=== PATIENT | female | born 1965 | race Caucasian/White ===

== ENCOUNTER 2019-08-14 09:59 | Outpatient (CLI) | payer MEDICARE, SELFPAY ==
[2019-08-14 10:46] LABS: Basophils # 0.1 10^3/uL (0.0-0.1); Basophils % 0.7 %; Eosinophils # 0.3 10^3/uL (0.0-0.8); Eosinophils % 4.2 %; Hematocrit 40.8 % (37.0-47.0); Hemoglobin 12.2 g/dL (11.5-15.3); Lymphocytes # 1.9 10^3/uL (0.8-4.8); Lymphocytes % 24.3 %; Mean Corpuscular HGB Conc 29.9 g/dL (30.0-36.0); Mean Corpuscular Hemoglobin 26.1 pg (28.0-34.0); Mean Corpuscular Volume 87.2 fL (81-99); Mean Platelet Volume 9.6 fL (7.4-10.4); Monocytes # 0.4 10^3/uL (0.2-0.9); Monocytes % 5.3 %; Neutrophils % 65.2 %; Nucleated Red Blood Cells % 0 %; Platelet Count 387 10^3/cmm (130-400); Red Blood Count 4.68 10^6/uL (4.1-5.3); Red Cell Distribution Width 15.8 % (12.1-15.1); White Blood Count 7.7 10^3/uL (4.0-10.0)
[2019-08-14 11:05] LABS: Alanine Aminotransferase 10 U/L (0-33); Alkaline Phosphatase 80 IU/L (35-105); Aspartate Amino Transferase 15 U/L (0-32); C Reactive Protein 18.4 mg/L (0.0-4.9); Globulin 4.3 g/dL (1.3-4.6); Glomerular Filtration Rate 74.7 mL/min (90-130); Total Bilirubin 0.2 mg/dL (0.15-1.2); Total Protein 8.3 g/dL (6.6-8.7)
[2019-08-14 12:00] LABS: Hepatitis C Virus Antibody Non-Reactive (Nonreactive)
[2019-08-14 12:10] LABS: Erythrocyte Sedimentation Rate 46 mm/hr (0-15)
[2019-08-14 13:27] LABS: Hepatitis B Surface Antigen. Non-Reactive (Nonreactive)
[2019-08-16 14:41] LABS: Quantiferon Nil 0.02 IU/mL; Quantiferon Plus TB2 0.01 IU/mL; Quantiferon TB Gold NEGATIVE (NEGATIVE)
== END 2019-08-14 10:00 | disposition home or self-care (01) ==
LOC: LAB 10:06
PROVIDERS: Family Provider Family Medicine; PCP Family Medicine; Visit Provider Internal Medicine Rheumatology
DX: M35.00 Sjogren syndrome, unspecified (principal); D89.89 Other specified disorders involving the immune mechanism, not elsewhere classified
CPT/HCPCS: 36415; 80076; 82565; 85025; 85651; 86140; 86480; 86704; 86803; 87340

== ENCOUNTER 2019-11-12 12:26 | Outpatient (CLI) | payer MEDICARE, SELFPAY ==
--- NOTE | 2019-11-12 12:32 | MR_ITS ---
WS: [id number] MRI LUMBAR SPINE NONCONTRAST HISTORY: RADICULOPATHY LUMBAR REGION;BACK Pain; polyneuropathy UNSPEC COMPARISON: 07/02/2014 TECHNIQUE: Sagittal and axial multisequence imaging is submitted. Same numbering pattern will be utilized as on the prior MRI. There are 6 lumbar type vertebral bodies . The sixth lumbar vertebral body may be a lumbarized sacral segment. This was numbered as 6 lumbar v ertebral bodies on the prior study and this same number pattern will be utilized. Normal lumbar alignment. Advanced degenerative disc disease from L4-5 through L5-L6 and L6-S1. No fractures or marrow edema. Conus terminates normally at L1-2 disc level. L1-L2: Normal. L2-L3: Normal. L3-L4: Mild annular disc bulging and ligamentum flavum hypertrophy. No stenosis. L4-L5: Diffuse asymmetric disc bulging and osteophytosis. Laminectomy defect on the LEFT. There is mi ld LEFT subarticular recess stenosis. No change since the prior study. L5-L6: Diffuse mild annular disc bulging with ligamentum flavum hypertrophy and facet arthritis. Left -sided laminectomy defect. Mild bilateral foraminal narrowing and mild LEFT subarticular recess narro wing. L6-S1: Broad-based disc bulging with moderate facet arthritis. Very mild narrowing of the LEFT forame n and subarticular recess. Paravertebral soft tissues are negative. MR/MR lumbar spine wo con* [id number] IMPRESSION: 1. No significant central or foraminal stenosis. 2. 6 lumbar type vertebral bodies are identified as on the prior study from . Similar numbering pattern will be utilized today. 3. LEFT laminectomy defects at L4-5 and L5-L6. 4. Mild annular disc bulging and osteophytic ridging resulting in mild LEFT cabezas barticular recess and facet narrowing at L4-5, L5 -L6 and L6-S1.
== END 2019-11-12 12:27 | disposition home or self-care (01) ==
LOC: RADSHAW 12:28
PROVIDERS: PCP Nurse Practitioner; Visit Provider Nurse Practitioner
DX: M54.16 Radiculopathy, lumbar region (principal); G62.9 Polyneuropathy, unspecified
CPT/HCPCS: 72148

== ENCOUNTER 2019-11-21 14:27 | Outpatient (CLI) | payer MEDICARE, SELFPAY ==
--- NOTE | 2019-11-21 14:34 | XRR_ITS ---
PROCEDURE INFORMATION: Exam: XR Cervical Spine, 2 or 3 Views Exam date and time: 11/21/2019 2:54 PM Age: 54 years old Clinical indication: Patient HX: Neck pain with numbness in hands, PT fell in October 2019 TECHNIQUE: Imaging protocol: XR of the cervical spine, 2 or 3 views. COMPARISON: No relevant prior studies available. FINDINGS: Vertebrae: Partial obscuration of C7. No acute bony injury or malalignment in the visualized cervical spine. Degenerative change. Soft tissues: Unremarkable. XR/XR cervical spine 3V* [id number] IMPRESSION: 1. Partial obscuration of C7. 2. Degenerative change.
== END 2019-11-21 14:28 | disposition home or self-care (01) ==
LOC: RAD 14:33
PROVIDERS: Family Provider Nurse Practitioner; PCP Nurse Practitioner; Visit Provider Family Medicine
DX: M54.2 Cervicalgia (principal)
CPT/HCPCS: 72040

== ENCOUNTER → 2019-11-27 13:15 | Outpatient (BNVA) | payer MEDICARE, SELFPAY | PROVIDERS: Family Provider Nurse Practitioner; PCP Nurse Practitioner; Visit Provider Internal Medicine | DX: M06.9 Rheumatoid arthritis, unspecified (principal); Z79.899 Other long term (current) drug therapy; M35.3 Polymyalgia rheumatica; M35.00 Sjogren syndrome, unspecified; R00.0 Tachycardia, unspecified | CPT/HCPCS: 36415; 99214 ==

== ENCOUNTER 2019-11-27 15:04 | Outpatient (CLI) | payer MEDICARE, SELFPAY ==
--- NOTE | 2019-11-27 15:34 | ECG_ITS ---
[facility] Test Date: 2019-11-27 Pat Name: Asiya Ledezma Department: Room: Gender: Female [place]: : 1965 Requested By: Ness Mcneil Order Number: [id number] Francisco MD: Lizbeth Reese M.D. Measurements Intervals [place] Rate: 102 P: 53 WA: 162 QRS: -26 QRSD: 102 T: 17 QT: 310 QTc: 406 Interpretive Statements SINUS TACHYCARDIA MODERATE VOLTAGE CRITERIA FOR LVH, CONSIDER NORMAL VARIANT [MEETS CRITERIA IN ONE OF: R(aVL), S(V1), R(V5), R(V5/V6)+S(V1)] POSSIBLE ANTERIOR MYOCARDIAL INFARCTION , PROBABLY OLD [30 ms Q WAVE IN V3/V4, OR R < 0.2 mV IN V4] ABNORMAL RHYTHM ECG No previous ECG available for comparison Electronically Signed On 11-27-2019 19:35:27 CDT by Lizbeth Reese M.D. [email or web address]
== END 2019-11-27 15:05 | disposition home or self-care (01) ==
LOC: RT 15:10
PROVIDERS: PCP Nurse Practitioner; Visit Provider Internal Medicine
DX: R00.0 Tachycardia, unspecified (principal); M35.3 Polymyalgia rheumatica; M06.9 Rheumatoid arthritis, unspecified
CPT/HCPCS: 80053; 85025; 85651; 86140; 86431; 93005

== ENCOUNTER → 2020-02-19 13:20 | Outpatient (BNVA) | payer MEDICARE, SELFPAY | PROVIDERS: PCP Nurse Practitioner; Visit Provider Internal Medicine Rheumatology | DX: Z79.899 Other long term (current) drug therapy (principal) | CPT/HCPCS: 36415; 80053; 85025 ==

== ENCOUNTER → 2020-04-21 09:48 | Outpatient (BNVA) | payer MEDICARE, SELFPAY | PROVIDERS: PCP Nurse Practitioner; Visit Provider Internal Medicine | DX: M06.9 Rheumatoid arthritis, unspecified (principal); Z79.899 Other long term (current) drug therapy | CPT/HCPCS: 99213 ==

== ENCOUNTER 2020-04-24 10:16 | Outpatient (CLI) | payer MEDICARE, SELFPAY ==
--- NOTE | 2020-04-24 10:29 | XR_ITS ---
WS: [id number] Left hand, 2 views, 04/24/2020 Clinical Data: hand pain Comparison: Left hand, 01/24/2017. Findings: No fractures or dislocations are seen. The soft tissues are unremarkable. The joint spaces are normal No periarticular demineralization or significant calcifications are seen. XR/XR hand LT 2V [id number] Impression: Negative left hand.
--- NOTE | 2020-04-24 10:29 | XR_ITS ---
WS: [id number] Right hand, 2 views, 04/24/2020 Clinical Data: hand pain Comparison: Right hand, 01/24/2017. Findings: No fractures or dislocations are seen. The soft tissues are unremarkable. The joint space s are normal No periarticular demineralization or calcification is seen. XR/XR hand RT 2V [id number] Impression: Negative right hand.
--- NOTE | 2020-04-24 10:54 | XR_ITS ---
WS: [id number] Right knee, 3 views, 04/24/2020 Clinical Data: M06.9 - Rheumatoid arthritis, unspecified Comparison: Right knee, 01/24/2017. Findings: No fractures or dislocations are seen. There is narrowing of the medial lateral joint compartments, m ore narrowing on the medial side than the lateral. There are bilateral osteophytes of the femoral con dyles.. The patella is intact. The soft tissues are unremarkable. There is posterior patellar spurring. There is an incidental osteochondroma of the proximal posterior fibula. XR/XR knee RT 3V* [id number] Impression: Tricompartment osteoarthritis of the right knee.
== END 2020-04-24 10:17 | disposition home or self-care (01) ==
LOC: RADWPI 10:23
PROVIDERS: PCP Nurse Practitioner; Visit Provider Internal Medicine
DX: M06.9 Rheumatoid arthritis, unspecified (principal); M79.642 Pain in left hand; M79.641 Pain in right hand; M17.11 Unilateral primary osteoarthritis, right knee
CPT/HCPCS: 73120; 73562

== ENCOUNTER 2020-06-25 15:19 | Outpatient (CLI) | payer MEDICARE, SELFPAY ==
--- NOTE | 2020-06-25 15:28 | MM_ITS ---
WS: [id number] BILATERAL DIGITAL SCREENING MAMMOGRAPHY WITH CAD CLINICAL INFORMATION: SCREENING HISTORY: Screening mammogram. No current complaints. COMPARISON: TECHNIQUE: Bilateral CC and MLO views. FINDINGS: Scattered fibroglandular densities bilaterally. No suspicious focal mass, asymmetry, calcifications, or architectural distortion. No evidence of malignancy. Calcification left breast. MM/[place] [id number] IMPRESSION: BI-RADS: 2-Benign FOLLOW UP: 1 Year Follow-up Recommend return to annual screening mammography.
== END 2020-06-25 15:20 | disposition home or self-care (01) ==
LOC: RADSHAW 15:27
PROVIDERS: PCP Nurse Practitioner; Visit Provider Nurse Practitioner
DX: Z12.31 Encounter for screening mammogram for malignant neoplasm of breast (principal)
CPT/HCPCS: 77067

== ENCOUNTER → 2020-08-03 09:53 | Outpatient (BNVA) | payer MEDICARE, SELFPAY | PROVIDERS: PCP Nurse Practitioner; Visit Provider Internal Medicine | DX: M06.9 Rheumatoid arthritis, unspecified (principal); Z79.899 Other long term (current) drug therapy; Z11.1 Encounter for screening for respiratory tuberculosis; M35.00 Sjogren syndrome, unspecified; R00.0 Tachycardia, unspecified; M32.9 Systemic lupus erythematosus, unspecified | CPT/HCPCS: 80053; 85025; 85651; 86140; 86431; 86480; 99214 ==

== ENCOUNTER 2020-08-03 10:54 | Outpatient (CLI) | payer MEDICARE, SELFPAY ==
[2020-08-03 11:53] LABS: Basophils % 0.4 %; Eosinophils # 0.2 10^3/uL (0.0-0.8); Eosinophils % 2.2 %; Hematocrit 39.2 % (37.0-47.0); Hemoglobin 12.1 g/dL (11.5-15.3); Lymphocytes # 2.3 10^3/uL (0.8-4.8); Lymphocytes % 34.1 %; Mean Corpuscular HGB Conc 30.9 g/dL (30.0-36.0); Mean Corpuscular Volume 84.3 fL (81-99); Mean Platelet Volume 9.9 fL (7.4-10.4); Monocytes # 0.3 10^3/uL (0.2-0.9); Neutrophils # 3.97 10^3/uL (1.8-7.7); Neutrophils % 59.2 %; Nucleated Red Blood Cells % 0 %; Platelet Count 329 10^3/cmm (130-400); Red Blood Count 4.65 10^6/uL (4.1-5.3); Red Cell Distribution Width 16.8 % (12.1-15.1); White Blood Count 6.7 10^3/uL (4.0-10.0)
[2020-08-03 12:10] LABS: Alanine Aminotransferase 17 U/L (0-33); Albumin Level 4.1 g/dL (3.5-5.2); Alkaline Phosphatase 64 IU/L (35-105); Anion Gap 15.1 (5-19); Aspartate Amino Transferase 19 U/L (0-32); Blood Urea Nitrogen 8 mg/dL (6-20); C Reactive Protein 5.9 mg/L (0.0-4.9); Carbon Dioxide 27 mmol/L (22-29); Chloride 99 mmol/L (98-107); Globulin 3.7 g/dL (1.3-4.6); Glomerular Filtration Rate 86.9 mL/min (90-130); Glucose 110 mg/dL (65-115); Osmolality Calculated 283 mOsm/kg (285-295); Potassium 4.1 mmol/L (3.5-5.1); Sodium 137 mmol/L (136-145); Total Bilirubin 0.2 mg/dL (0.15-1.2); Total Protein 7.8 g/dL (6.6-8.7)
[2020-08-03 12:47] LABS: Erythrocyte Sedimentation Rate 46 mm/hr (0-15)
[2020-08-04 13:12] LABS: Cyclic Citrullinated Peptide <16 UNITS
[2020-08-05 14:57] LABS: Quantiferon Mitogen 9.09 IU/mL; Quantiferon Nil 0.02 IU/mL; Quantiferon Plus TB1 0.01 IU/mL; Quantiferon Plus TB2 0.01 IU/mL; Quantiferon TB Gold NEGATIVE (NEGATIVE)
== END 2020-08-03 10:55 | disposition home or self-care (01) ==
LOC: LAB 10:59
PROVIDERS: PCP Nurse Practitioner; Visit Provider Internal Medicine
DX: M06.9 Rheumatoid arthritis, unspecified (principal); M32.9 Systemic lupus erythematosus, unspecified
CPT/HCPCS: 80053; 85025; 85651; 86140; 86431; 86480

== ENCOUNTER 2020-10-23 10:38 | Outpatient (CLI) | payer MEDICARE, SELFPAY ==
[2020-10-23 11:15] LABS: Basophils % 0.5 %; Eosinophils # 0.2 10^3/uL (0.0-0.8); Eosinophils % 3.2 %; Hematocrit 36.7 % (37.0-47.0); Hemoglobin 11.3 g/dL (11.5-15.3); Lymphocytes # 2.1 10^3/uL (0.8-4.8); Lymphocytes % 34.7 %; Mean Corpuscular HGB Conc 30.8 g/dL (30.0-36.0); Mean Corpuscular Hemoglobin 27.2 pg (28.0-34.0); Mean Corpuscular Volume 88.2 fL (81-99); Mean Platelet Volume 9.5 fL (7.4-10.4); Monocytes # 0.4 10^3/uL (0.2-0.9); Monocytes % 6.7 %; Neutrophils # 3.25 10^3/uL (1.8-7.7); Neutrophils % 54.4 %; Nucleated Red Blood Cells % 0 %; Platelet Count 312 10^3/cmm (130-400); Red Blood Count 4.16 10^6/uL (4.1-5.3); Red Cell Distribution Width 16.1 % (12.1-15.1)
[2020-10-23 11:22] LABS: Alanine Aminotransferase 20 U/L (0-33); Albumin Level 3.9 g/dL (3.5-5.2); Alkaline Phosphatase 74 IU/L (35-105); Anion Gap 14.8 (5-19); Aspartate Amino Transferase 20 U/L (0-32); Blood Urea Nitrogen 6 mg/dL (6-20); C Reactive Protein 6.1 mg/L (0.0-4.9); Calcium 8.3 mg/dL (8.5-10.5); Carbon Dioxide 27 mmol/L (22-29); Chloride 102 mmol/L (98-107); Globulin 3.3 g/dL (1.3-4.6); Glomerular Filtration Rate 86.9 mL/min (90-130); Glucose 165 mg/dL (65-115); Osmolality Calculated 291 mOsm/kg (285-295); Potassium 3.8 mmol/L (3.5-5.1); Sodium 140 mmol/L (136-145); Total Bilirubin 0.2 mg/dL (0.15-1.2); Total Protein 7.2 g/dL (6.6-8.7)
[2020-10-23 12:34] LABS: Erythrocyte Sedimentation Rate 43 mm/hr (0-15)
== END 2020-10-23 10:39 | disposition home or self-care (01) ==
LOC: LAB 10:41
PROVIDERS: PCP Nurse Practitioner; Visit Provider Internal Medicine
DX: Z79.899 Other long term (current) drug therapy (principal); M06.9 Rheumatoid arthritis, unspecified
CPT/HCPCS: 80053; 85025; 85651; 86140

== ENCOUNTER → 2020-10-28 09:26 | Outpatient (BNVA) | payer MEDICARE, SELFPAY | PROVIDERS: PCP Nurse Practitioner; Visit Provider Internal Medicine | DX: M06.9 Rheumatoid arthritis, unspecified (principal); Z79.899 Other long term (current) drug therapy; M54.5 Low back pain | CPT/HCPCS: 99213 ==

== ENCOUNTER → 2021-02-16 09:04 | Outpatient (BNVA) | payer MEDICARE, SELFPAY | PROVIDERS: PCP Nurse Practitioner; Visit Provider Internal Medicine | DX: M06.9 Rheumatoid arthritis, unspecified (principal); M54.5 Low back pain; Z79.899 Other long term (current) drug therapy | CPT/HCPCS: 99213; 99214 ==

== ENCOUNTER 2021-02-19 10:15 | Outpatient (CLI) | payer MEDICARE, SELFPAY ==
[2021-02-19 10:44] LABS: Basophils % 0.6 %; Eosinophils # 0.2 10^3/uL (0.0-0.8); Eosinophils % 3.6 %; Hematocrit 37.7 % (37.0-47.0); Hemoglobin 11.7 g/dL (11.5-15.3); Lymphocytes # 1.4 10^3/uL (0.8-4.8); Lymphocytes % 28.3 %; Mean Corpuscular Hemoglobin 27.5 pg (28.0-34.0); Mean Corpuscular Volume 88.5 fl (81-99); Mean Platelet Volume 9.5 fL (7.4-10.4); Monocytes # 0.4 10^3/uL (0.2-0.9); Monocytes % 8.4 %; Neutrophils # 2.94 10^3/uL (1.8-7.7); Neutrophils % 58.7 %; Nucleated Red Blood Cells % 0 %; Platelet Count 282 10^3/cmm (130-400); Red Blood Count 4.26 10^6/uL (4.1-5.3); Red Cell Distribution Width 15.6 % (12.1-15.1)
[2021-02-19 11:06] LABS: Alanine Aminotransferase 16 U/L (0-33); Albumin Level 3.8 g/dL (3.5-5.2); Alkaline Phosphatase 70 IU/L (35-105); Aspartate Amino Transferase 17 U/L (0-32); Blood Urea Nitrogen 5 mg/dL (6-20); C Reactive Protein 8.6 mg/L (0.0-4.9); Calcium 8.7 mg/dL (8.5-10.5); Carbon Dioxide 27 mmol/L (22-29); Chloride 100 mmol/L (98-107); Globulin 3.5 g/dL (1.3-4.6); Glomerular Filtration Rate 103.8 mL/min (90-130); Glucose 114 mg/dL (65-115); Osmolality Calculated 284 mOsm/kg (285-295); Sodium 138 mmol/L (136-145); Total Bilirubin 0.2 mg/dL (0.15-1.2); Total Protein 7.3 g/dL (6.6-8.7)
[2021-02-19 12:09] LABS: Erythrocyte Sedimentation Rate 39 mm/hr (0-15)
== END 2021-02-19 10:16 | disposition home or self-care (01) ==
PROVIDERS: PCP Nurse Practitioner; Visit Provider Internal Medicine
DX: M06.9 Rheumatoid arthritis, unspecified (principal); Z79.899 Other long term (current) drug therapy
CPT/HCPCS: 80053; 85025; 85651; 86140

== ENCOUNTER → 2021-05-17 08:52 | Outpatient (BNVA) | payer MEDICARE, SELFPAY | PROVIDERS: PCP Nurse Practitioner; Visit Provider Internal Medicine | DX: M06.9 Rheumatoid arthritis, unspecified (principal); M19.90 Unspecified osteoarthritis, unspecified site; Z79.899 Other long term (current) drug therapy | CPT/HCPCS: 36415; 80053; 85025; 85651; 86140 ==

== ENCOUNTER → 2021-05-24 13:45 | Outpatient (BNVA) | payer MEDICARE, SELFPAY | PROVIDERS: PCP Nurse Practitioner; Visit Provider Internal Medicine | DX: M06.9 Rheumatoid arthritis, unspecified (principal); Z79.899 Other long term (current) drug therapy; M54.50 Low back pain, unspecified; M48.00 Spinal stenosis, site unspecified | CPT/HCPCS: 99214 ==

== ENCOUNTER 2021-06-29 08:23 | Outpatient (CLI) | payer MEDICARE, SELFPAY ==
--- NOTE | 2021-06-29 08:46 | XR_ITS ---
WS: [id number] SI JOINTS TECHNIQUE: 3 views of the sacroiliac joints CLINICAL INFORMATION: SACROCOCCYGEAL DISORDERS, PAIN RT SACROILIAC JOINT COMPARISON: None. FINDINGS: Moderate degenerative arthritis both sacroiliac joints. No significant erosive changes. Slight hypert rophic changes along the sacroiliac joints. Pelvic phleboliths. Disc space narrowing worse at L4-5. XR/XR sacroiliac jts m 3V [id number] IMPRESSION: Moderate degenerative arthritis sacroiliac joints with mild hypertrophic change s. No significant erosive changes.
== END 2021-06-29 08:24 | disposition home or self-care (01) ==
PROVIDERS: PCP Nurse Practitioner; Visit Provider Registered Nurse
DX: M54.16 Radiculopathy, lumbar region (principal); M53.3 Sacrococcygeal disorders, not elsewhere classified; Z98.890 Other specified postprocedural states
CPT/HCPCS: 72202

== ENCOUNTER 2021-08-19 08:50 | Outpatient (CLI) | payer MEDICARE, SELFPAY ==
[2021-08-19 10:07] LABS: Basophils % 0.7 %; Eosinophils # 0.2 10^3/uL (0.0-0.8); Eosinophils % 2.6 %; Hematocrit 38.3 % (37.0-47.0); Hemoglobin 11.7 g/dL (11.5-15.3); Lymphocytes # 1.8 10^3/uL (0.8-4.8); Lymphocytes % 32.1 %; Mean Corpuscular HGB Conc 30.5 g/dL (30.0-36.0); Mean Corpuscular Hemoglobin 27.3 pg (28.0-34.0); Mean Corpuscular Volume 89.5 fl (81-99); Mean Platelet Volume 10.2 fL (7.4-10.4); Monocytes # 0.4 10^3/uL (0.2-0.9); Monocytes % 7.5 %; Neutrophils # 3.23 10^3/uL (1.8-7.7); Neutrophils % 56.7 %; Nucleated Red Blood Cells % 0 %; Platelet Count 316 10^3/cmm (130-400); Red Blood Count 4.28 10^6/uL (4.1-5.3); Red Cell Distribution Width 15.4 % (12.1-15.1); White Blood Count 5.7 10^3/uL (4.0-10.0)
[2021-08-19 10:38] LABS: Erythrocyte Sedimentation Rate 31 mm/hr (0-15)
== END 2021-08-19 08:51 | disposition home or self-care (01) ==
PROVIDERS: PCP Nurse Practitioner; Visit Provider Internal Medicine
DX: M06.9 Rheumatoid arthritis, unspecified (principal); Z79.899 Other long term (current) drug therapy
CPT/HCPCS: 85025; 85651

== ENCOUNTER → 2021-08-30 11:02 | Outpatient (BNVA) | payer MEDICARE, SELFPAY | PROVIDERS: PCP Nurse Practitioner; Visit Provider Internal Medicine | DX: M06.9 Rheumatoid arthritis, unspecified (principal); M17.10 Unilateral primary osteoarthritis, unspecified knee; Z79.899 Other long term (current) drug therapy | CPT/HCPCS: 99214 ==

== ENCOUNTER 2021-09-03 10:57 | Outpatient (CLI) | payer MEDICARE, SELFPAY ==
[2021-09-03 12:18] LABS: Alanine Aminotransferase 14 U/L (0-33); Albumin Level 3.8 g/dL (3.5-5.2); Alkaline Phosphatase 62 IU/L (35-105); Anion Gap 14.7 (5-19); Aspartate Amino Transferase 17 U/L (0-32); Blood Urea Nitrogen 8 mg/dL (6-20); C Reactive Protein 4.6 mg/L (0.0-4.9); Calcium 9.4 mg/dL (8.5-10.5); Carbon Dioxide 26 mmol/L (22-29); Chloride 99 mmol/L (98-107); Globulin 3.7 g/dL (1.3-4.6); Glomerular Filtration Rate 86.6 mL/min (90-130); Glucose 123 mg/dL (65-115); Osmolality Calculated 282 mOsm/kg (285-295); Potassium 3.7 mmol/L (3.5-5.1); Sodium 136 mmol/L (136-145); Total Bilirubin 0.2 mg/dL (0.15-1.2); Total Protein 7.5 g/dL (6.6-8.7)
== END 2021-09-03 10:58 | disposition home or self-care (01) ==
PROVIDERS: PCP Nurse Practitioner; Visit Provider Internal Medicine
DX: M06.9 Rheumatoid arthritis, unspecified (principal); M17.10 Unilateral primary osteoarthritis, unspecified knee; Z79.899 Other long term (current) drug therapy
CPT/HCPCS: 36415; 80053; 86140

== ENCOUNTER → 2021-11-02 09:53 | Outpatient (BNVA) | payer MEDICARE, SELFPAY | PROVIDERS: PCP Nurse Practitioner; Referring Provider Anesthesiology Pain Medicine; Visit Provider Orthopaedic Surgery | DX: M54.50 Low back pain, unspecified (principal) | CPT/HCPCS: 72100; 99203; 99204 ==

== ENCOUNTER → 2021-11-16 10:42 | Outpatient (BNVA) | payer MEDICARE, SELFPAY | PROVIDERS: PCP Nurse Practitioner; Visit Provider Specialist | DX: G62.89 Other specified polyneuropathies (principal) | CPT/HCPCS: 95909; 95911 ==

== ENCOUNTER 2021-11-17 08:39 | Day surgery (SDC) | payer MEDICARE, SELFPAY ==
[2021-11-16 08:27] VITALS: BMI 41.6
[2021-11-17] VITALS (20 sets, daily range): BP systolic 111–151; BP diastolic 53–97; PULSE 70–84; RESP 15–25; TEMP 36.1–36.6; O2SAT 92–100
--- NOTE | 2021-11-17 | XR_ITS ---
WS: [id number] INTRAOPERATIVE TECHNIQUE: 4 Spot fluoroscopic images for intraoperative purposes. FLUOROSCOPY TIME: 22.1 seconds CLINICAL INFORMATION: spinal cord stimulator COMPARISON: None. FINDINGS: Images obtained for intraoperative purposes. Dorsal spinal stimulator projected over the dorsal spina l canal thoracic spine with tip at the T7-T8 level XR/XR thoracolumbar junct [id number] IMPRESSION: Images obtained for intraoperative purposes.
[2021-11-17 09:11] LABS: Glucose Point of Care 114 mg/dL (70-110)
[2021-11-17] MEDS: sodium chloride 0.9% 1,000 ML 30 ML IV (09:16)
--- NOTE | 2021-11-17 10:08 | ANES.PREANE2 ---
Pre-Anesthetic Assessment Height/Weight: Height 1.61 m Weight 108.409 kg Temp Pulse Resp BP Pulse Ox 97 F L 81 17 131/81 97 11/17/21 09:08 11/17/21 09:08 11/17/21 09:08 11/17/21 09:08 11/17/21 09:08 Preop Diagnosis: Failed Back Syndrome w chronic back pain Operation Date: 11/17/21 10:10 Proposed Procedures p Spincal Cord Stimulator Placement [id number]/[id number] M54.05(Not Applicable) - Vitaly Lerner DO Last intake: Intake Last Liquid Date 11/16/21 Last Liquid Time 00:00 Last Solid Date 11/16/21 Last Solid Time 23:00 Social No alcohol and No tobacco Airway Submandibular: Other (limited) Mallampati: Class III CV/HEM Tachycardia Metabolic DM II Musc/skel Lower Back Pain Rheumatoid Arthritis Neuropsych Depression Anesthetic Plan ASA status: 3 Anesthesia: General Medications/Allergies Home Medications Medication Instructions Recorded Confirmed Last Taken Type atorvastatin 10 mg tablet 10 mg PO DAILY 11/26/19 11/17/21 11/16/21 History calcium carbonate-vitamin D3 600 mg PO DAILY 11/26/19 11/17/21 11/16/21 History [Caltrate 600 plus D] cyclobenzaprine 10 mg tablet 10 mg PO TID 11/26/19 11/16/21 Unknown History duloxetine 60 mg capsule,delayed 60 mg PO DAILY 11/26/19 11/17/21 11/16/21 History release metformin 500 mg tablet 500 mg PO DAILY 11/26/19 11/17/21 11/16/21 History gabapentin 600 mg tablet 600 mg PO QID tab 08/03/20 11/17/21 11/17/21 History diclofenac sodium 1 % topical gel 2 g TOPICAL QID PRN g 02/25/21 11/16/21 Unknown History (Voltaren) metoprolol succinate 25 mg 37.5 mg PO DAILY #135 tab 02/25/21 11/17/21 11/16/21 Rx tablet,extended release 24 hr morphine 60 mg capsule,extended 30 mg PO TID cap 02/25/21 11/17/21 11/17/21 08:00 History release 24 hr multiphase hydroxychloroquine 200 mg tablet 200 mg PO BID #60 tab 11/12/21 11/17/21 11/16/21 Rx meloxicam 15 mg tablet 15 mg PO DAILY #30 tab 11/12/21 11/17/21 11/16/21 Rx methotrexate sodium 25 mg/mL 25 mg SUBCUT .Q 7 days #10 ml 11/12/21 11/17/21 11/11/21 Rx injection solution tofacitinib 11 mg tablet,extended 11 mg PO DAILY #30 tab 11/15/21 11/17/21 11/16/21 Rx release 24 hr (Xeljanz XR) folic acid 1 mg tablet 2 mg PO DAILY tab 11/16/21 11/17/21 11/16/21 History loratadine 10 mg tablet (Claritin) 10 mg PO DAILY 11/16/21 11/17/21 11/17/21 History morphine 15 mg immediate release 15 mg PO QID PRN 11/16/21 11/17/21 11/16/21 History tablet pilocarpine HCl 5 mg tablet 5 mg PO DAILY 11/16/21 11/17/21 11/16/21 History Allergies Allergy/AdvReac Type Severity Reaction Status Date / Time No Known Allergies Allergy Verified 11/16/21 10:48 Current Medications Generic Name Dose Route Start Last Admin Trade Name Freq PRN Reason Stop Dose Admin Sodium Chloride 1,000 mls @ 30 mls/hr 11/17/21 09:00 11/17/21 09:16 Sodium Chloride 0.9% IV 11/18/21 08:59 30 mls/hr .Q24H YAIMA Administration PFSH Anesthesia Medical History Rheumatoid arthritis Sjogrens syndrome Tachycardia Family History Other Cancer Diabetes Social History Smoking and tobacco status: never smoked Alcohol intake: former History of recent travel: No Data Anesthesia Cardiac Studies: No Data to Display
--- NOTE | 2021-11-17 11:14 | W.PM.OPSUD ---
Surgery/Procedure H&P Update DATE OF PROCEDURE: November 17, 2021 DATE H&P PERFORMED: 11/02/21 H&P UPDATE INFORMATION: I have reviewed H&P completed within last 30 days, I have examined patient prior to procedure and No changes to prior documentation PREOP DIAGNOSIS: Failed Back Syndrome w chronic back pain PLANNED PROCEDURE: Operation Date: 11/17/21 10:10 Proposed Procedures p Spincal Cord Stimulator Placement 56609/81000 M54.05(Not Applicable) - Vitaly Lerner DO
[2021-11-17] MEDS: vancomycin 1,000 MG SDV 1000 MG XX (13:10)
--- NOTE | 2021-11-17 13:32 | ANE.PACU2 ---
Inpatient post-anesthesia follow up: Vital signs: Temperature 97 F Pulse Rate 81 Respiratory Rate 17 Blood Pressure 131/81 Pulse Oximetry 97 Oxygen Delivery Me thod Room Air Oxygen Flow Rate Fraction of Inspir ed Oxygen Hydration adequate: Yes Nausea and vomiting: No Pain level: 3 Mental status: Baseline
--- NOTE | 2021-11-17 13:37 | PM.OP ---
Operative Report Date of procedure: November 17, 2021 Pre-op diagnosis: Preop Diagnosis Failed Back Syndrome w chronic back pain Post-op diagnosis: same Procedure done: 1. Placement of neurostimulator paddle in the thoracic spine 2. Placement of battery pack left flank for neurostimulator Surgeon: Vitaly Lerner Operations [place]: Bo Briones Operations Board[place]: The surgical scrub tech, Bo Briones, PAC was needed for his expertise under the microscope. He was important and necessary throughout the procedure to complete in a safe and timely manner. He assisted with patient positioning prepping and draping tissue retraction suctioning of the operative field protection of the dural sac and tissue closure Estimated blood loss (mL): 5 Procedure: 1. Placement of neurostimulator paddle in the thoracic spine 2. Placement of battery pack left flank for neurostimulator Suite after undergoing anesthesia patient was placed in the prone position. All areas of impingement were well-padded. Patient's trials showed that the best place to get the electrodes was the top of T9 and T8. C-arm was brought in the T9-10 disc space was identified. Patient was then prepped and draped no sterile fashion. Skin skin is made over the T9-10 disc base. Dissection was brought down with Bovie down to the lamina retractors were placed a curved curette was placed into the under the T9 lamina as confirmed under C-arm guidance. Rongeur was then used to bite the spinous process and interspinous ligament. A high-speed bur was then used to take down the lamina inferiorly. And a small laminotomy was performed. This all done under the microscope. The ligamentum flavum was identified and taken down with a Kerrison rongeur. The dura was then identified. A trial paddle was inserted felt to go freely. And then the neurostimulator paddle from [employer] was inserted into the epidural space under the ligamentum flavum on top of the dura C-arm was brought in and was confirmed that this was then in position at the top of T9 and all the body of T8. The was then sutured in the wires were sutured into the spinous process through the spinous process of T9. Next attention was brought to performing the battery pocket. Skin tear is made over the left flank the skin was cut with a knife and then bur was used to coagulate bleeding. The pocket was then undermined with Bovie and blunt dissection. Retractors placed the wire passer was then passed from the spine incision to the flank incision. And MRIs are passed through this tube. The wires were then attached to the battery. And using the sarkis kit by and the [employer] rep confirmed that the wires were in fact working and then the battery was buried into the battery pocket. And was were closed in layered fashion with Vicryl and Monocryl suture. Sterile dressings were applied over the battery pack. The incision over the spine was confirmed there was no bleeding and the wound was closed in layered fashion closing the thoracolumbar fascia then the skin was closed with 0 Vicryl Monocryl suture. Sterile dressings were applied patient transferred to the PACU in stable addition.
[2021-11-17] MEDS: fentaNYL 50 mcg/mL INJ 2mL IVP ×2 (13:52→13:57)
[2021-11-17] MEDS: HYDROmorphone 1 mg/mL INJ 1 mL 0.5 MG IVP ×3 (14:06→14:30)
--- NOTE | 2021-11-18 | SCC_ITS ---
Procedure done: 1. Placement of neurostimulator paddle in the thoracic spine 2. Placement of battery pack left flank for neurostimulator 22.1 seconds of fluoroscopic guidance, for a cumulative dose of 12.49 mGy, was provided to Dr. Lerner by the radiology department. C-arm images of the thoracic spine were saved for the patient's permanent record. [facility]
== END 2021-11-17 15:20 | disposition home or self-care (01) ==
PROVIDERS: PCP Nurse Practitioner; Visit Provider Orthopaedic Surgery
PROC: (CPT 63685; principal; 2021-11-17 10:10)
DX: M54.50 Low back pain, unspecified (principal); G89.29 Other chronic pain; E11.9 Type 2 diabetes mellitus without complications; M06.9 Rheumatoid arthritis, unspecified
CPT/HCPCS: 63655; 63685; 36416; 72080; 76000; 82962; C1778; C1820; J0330; J1170; J2250; J2405; J2704; J2710; J3010; J3370; J3490; J7030

== ENCOUNTER → 2021-12-02 09:20 | Outpatient (BNVA) | payer MEDICARE, SELFPAY | PROVIDERS: PCP Nurse Practitioner; Visit Provider Orthopaedic Surgery | DX: Z47.89 Encounter for other orthopedic aftercare (principal); M06.9 Rheumatoid arthritis, unspecified; Z79.899 Other long term (current) drug therapy | CPT/HCPCS: 36415; 80053; 81003; 85025; 85651; 86140; 86225; 86235; 99024 ==

== ENCOUNTER → 2021-12-09 14:51 | Outpatient (BNVA) | payer MEDICARE, SELFPAY | PROVIDERS: PCP Nurse Practitioner; Visit Provider Internal Medicine | DX: M06.9 Rheumatoid arthritis, unspecified (principal); M35.00 Sjogren syndrome, unspecified; Z79.899 Other long term (current) drug therapy | CPT/HCPCS: 99214 ==

== ENCOUNTER → 2021-12-23 11:49 | Outpatient (BNVA) | payer MEDICARE, SELFPAY | PROVIDERS: PCP Nurse Practitioner; Referring Provider Neurological Surgery; Visit Provider Specialist | DX: G62.9 Polyneuropathy, unspecified (principal); M54.17 Radiculopathy, lumbosacral region | CPT/HCPCS: 95861; 99202 ==

== ENCOUNTER → 2022-01-20 09:27 | Outpatient (BNVA) | payer MEDICARE, SELFPAY | PROVIDERS: PCP Nurse Practitioner; Visit Provider Orthopaedic Surgery | DX: Z47.89 Encounter for other orthopedic aftercare (principal); Z96.642 Presence of left artificial hip joint | CPT/HCPCS: 99024 ==

== ENCOUNTER 2022-02-28 11:15 | Outpatient (CLI) | payer MEDICARE, SELFPAY ==
[2022-02-28 11:38] LABS: Basophils % 0.3 %; Eosinophils # 0.1 10^3/uL (0.0-0.8); Eosinophils % 2.4 %; Hematocrit 36.3 % (37.0-47.0); Hemoglobin 11.1 g/dL (11.5-15.3); Lymphocytes % 33.2 %; Mean Corpuscular HGB Conc 30.6 g/dL (30.0-36.0); Mean Corpuscular Hemoglobin 27.1 pg (28.0-34.0); Mean Corpuscular Volume 88.8 fl (81-99); Mean Platelet Volume 9.3 fL (7.4-10.4); Monocytes # 0.3 10^3/uL (0.2-0.9); Monocytes % 5.6 %; Neutrophils # 3.46 10^3/uL (1.8-7.7); Neutrophils % 58.2 %; Nucleated Red Blood Cells % 0 %; Platelet Count 310 10^3/cmm (130-400); Red Blood Count 4.09 10^6/uL (4.1-5.3); Red Cell Distribution Width 16.2 % (12.1-15.1); White Blood Count 5.9 10^3/uL (4.0-10.0)
[2022-02-28 11:49] LABS: Erythrocyte Sedimentation Rate 29 mm/hr (0-15)
[2022-02-28 12:07] LABS: Alanine Aminotransferase 10 U/L (0-33); Albumin Level 3.8 g/dL (3.5-5.2); Alkaline Phosphatase 66 U/L (35-105); Anion Gap 12.7 (5-19); Aspartate Amino Transferase 15 U/L (0-32); Blood Urea Nitrogen 8 mg/dL (6-20); C Reactive Protein 10.4 mg/L (0.0-4.9); Calcium 9.1 mg/dL (8.5-10.5); Carbon Dioxide 31 mmol/L (22-29); Chloride 99 mmol/L (98-107); Globulin 3.6 g/dL (1.3-4.6); Glomerular Filtration Rate 86.6 mL/min (90-130); Glucose 163 mg/dL (65-115); Osmolality Calculated 288 mOsm/kg (285-295); Potassium 4.7 mmol/L (3.5-5.1); Sodium 138 mmol/L (136-145); Total Bilirubin 0.2 mg/dL (0.15-1.2); Total Protein 7.4 g/dL (6.6-8.7)
== END 2022-02-28 11:16 | disposition home or self-care (01) ==
LOC: LAB 11:17
PROVIDERS: PCP Nurse Practitioner; Visit Provider Internal Medicine
DX: M35.00 Sjogren syndrome, unspecified (principal); G62.9 Polyneuropathy, unspecified; M06.9 Rheumatoid arthritis, unspecified; M17.10 Unilateral primary osteoarthritis, unspecified knee; Z79.899 Other long term (current) drug therapy
CPT/HCPCS: 36415; 80053; 85025; 85651; 86140

== ENCOUNTER → 2022-03-03 14:31 | Outpatient (BNVA) | payer MEDICARE, SELFPAY | PROVIDERS: PCP Nurse Practitioner; Visit Provider Internal Medicine | DX: M06.9 Rheumatoid arthritis, unspecified (principal); M35.00 Sjogren syndrome, unspecified | CPT/HCPCS: 99213 ==

== ENCOUNTER → 2022-03-14 14:14 | Outpatient (BNVA) | payer MEDICARE, SELFPAY | PROVIDERS: PCP Nurse Practitioner; Visit Provider Internal Medicine Cardiovascular Disease | DX: R00.0 Tachycardia, unspecified (principal) | CPT/HCPCS: 99214 ==

== ENCOUNTER 2022-07-11 08:59 | Outpatient (CLI) | payer MEDICARE, SELFPAY ==
[2022-07-11 10:08] LABS: Basophils % 0.5 %; Eosinophils # 0.2 10^3/uL (0.0-0.8); Eosinophils % 2.7 %; Hematocrit 36.8 % (37.0-47.0); Hemoglobin 11.1 g/dL (11.5-15.3); Lymphocytes # 2.2 10^3/uL (0.8-4.8); Lymphocytes % 37.5 %; Mean Corpuscular HGB Conc 30.2 g/dL (30.0-36.0); Mean Corpuscular Hemoglobin 27.5 pg (28.0-34.0); Mean Corpuscular Volume 91.3 fl (81-99); Mean Platelet Volume 9.9 fL (7.4-10.4); Monocytes # 0.3 10^3/uL (0.2-0.9); Monocytes % 5.3 %; Neutrophils # 3.14 10^3/uL (1.8-7.7); Neutrophils % 53.8 %; Nucleated Red Blood Cells % 0 %; Platelet Count 307 10^3/cmm (130-400); Red Blood Count 4.03 10^6/uL (4.1-5.3); Red Cell Distribution Width 16.3 % (12.1-15.1); White Blood Count 5.8 10^3/uL (4.0-10.0)
[2022-07-11 10:22] LABS: Alanine Aminotransferase 23 U/L (0-33); Albumin Level 3.6 g/dL (3.5-5.2); Alkaline Phosphatase 73 U/L (35-105); Aspartate Amino Transferase 23 U/L (0-32); Blood Urea Nitrogen 7 mg/dL (6-20); C Reactive Protein 5.8 mg/L (0.0-4.9); Carbon Dioxide 26 mmol/L (22-29); Chloride 102 mmol/L (98-107); Globulin 3.9 g/dL (1.3-4.6); Glomerular Filtration Rate 86.2 mL/min (90-130); Glucose 125 mg/dL (65-115); Osmolality Calculated 285 mOsm/kg (285-295); Sodium 138 mmol/L (136-145); Total Bilirubin 0.2 mg/dL (0.15-1.2); Total Protein 7.5 g/dL (6.6-8.7)
[2022-07-11 10:51] LABS: Erythrocyte Sedimentation Rate 57 mm/hr (0-15)
== END 2022-07-11 09:00 | disposition home or self-care (01) ==
PROVIDERS: PCP Nurse Practitioner; Visit Provider Internal Medicine
DX: M06.9 Rheumatoid arthritis, unspecified (principal)
CPT/HCPCS: 36415; 80053; 85025; 85651; 86140

== ENCOUNTER → 2022-09-09 08:41 | Outpatient (BNVA) | payer MEDICARE, SELFPAY | PROVIDERS: PCP Nurse Practitioner; Visit Provider Internal Medicine | DX: M06.9 Rheumatoid arthritis, unspecified (principal); M35.00 Sjogren syndrome, unspecified; M54.50 Low back pain, unspecified | CPT/HCPCS: 99214 ==

== ENCOUNTER 2022-09-22 11:32 | Outpatient (CLI) | payer MEDICARE, SELFPAY ==
--- NOTE | 2022-09-22 11:38 | MM_ITS ---
WS: [id number] SCREENING DIGITAL TOMOSYNTHESIS MAMMOGRAM WITH CAD HISTORY: SCREENING COMPARISON: 06/25/2020 and 10/13/2017 Bilateral CC and MLO with tomosynthesis views submitted. Synthetic mammography reviewed. Computer aid ed detection analyzed. Breast composition: There are scattered areas of fibroglandular density. No suspicious masses, microc alcifications or architectural distortion. Benign calcification superior posterior LEFT breast. MM/[place] [id number] IMPRESSION: BI-RADS: 2-Benign FOLLOW UP: 1 Year Follow-up
== END 2022-09-22 11:33 | disposition home or self-care (01) ==
LOC: RAD 11:36
PROVIDERS: PCP Nurse Practitioner Family; Visit Provider Nurse Practitioner Family
DX: Z12.31 Encounter for screening mammogram for malignant neoplasm of breast (principal)
CPT/HCPCS: 77063; 77067

== ENCOUNTER → 2022-11-23 09:19 | Outpatient (BNVA) | payer MEDICARE, SELFPAY | PROVIDERS: PCP Nurse Practitioner Family; Visit Provider Internal Medicine | DX: M06.9 Rheumatoid arthritis, unspecified (principal); M35.00 Sjogren syndrome, unspecified; M54.50 Low back pain, unspecified | CPT/HCPCS: 36415; 80053; 83735; 85025; 86140; 99214 ==

== ENCOUNTER 2022-11-24 10:25 | Outpatient (CLI) | payer MEDICARE, SELFPAY ==
[2022-11-24 12:29] LABS: Erythrocyte Sedimentation Rate 47 mm/hr (0-15)
== END 2022-11-24 10:26 | disposition home or self-care (01) ==
PROVIDERS: PCP Nurse Practitioner Family; Visit Provider Internal Medicine
DX: Z01.89 Encounter for other specified special examinations (principal)
CPT/HCPCS: 85651

== ENCOUNTER 2023-03-10 11:32 | Outpatient (CLI) | payer MEDICARE, SELFPAY ==
[2023-03-10 12:06] LABS: Erythrocyte Sedimentation Rate 24 mm/hr (0-15)
[2023-03-10 12:07] LABS: Basophils % 0.4 %; Eosinophils # 0.1 10^3/uL (0.0-0.8); Eosinophils % 1.1 %; Hematocrit 36.6 % (36-47); Lymphocytes # 1.1 10^3/uL (0.8-4.8); Lymphocytes % 14.3 %; Mean Corpuscular HGB Conc 31.1 g/dL (30-55); Mean Corpuscular Volume 86.5 fl (85-98); Mean Platelet Volume 9.2 fL (7.4-10.4); Monocytes # 0.3 10^3/uL (0.2-0.9); Monocytes % 3.8 %; Neutrophils # 6.27 10^3/uL (1.8-7.7); Nucleated Red Blood Cells % 0 %; Platelet Count 341 10^3/cmm (157-399); Red Blood Count 4.23 10^6/uL (3.85-5.65); Red Cell Distribution Width 16.9 % (12.1-15.1); White Blood Count 7.84 10^3/uL (3.29-11.43)
[2023-03-10 12:27] LABS: Alanine Aminotransferase 19 U/L (0-33); Albumin Level 4.2 g/dL (3.5-5.2); Alkaline Phosphatase 79 U/L (35-105); Anion Gap 14.4 (5-19); Aspartate Amino Transferase 22 U/L (0-32); Blood Urea Nitrogen 8 mg/dL (6-20); C Reactive Protein 10.5 mg/L (0.0-4.9); Calcium 9.3 mg/dL (8.5-10.5); Carbon Dioxide 28 mmol/L (22-29); Chloride 99 mmol/L (98-107); Globulin 3.5 g/dL (1.3-4.6); Glomerular Filtration Rate 73.9 mL/min (90-130); Glucose 131 mg/dL (65-115); Osmolality Calculated 284 mOsm/kg (285-295); Potassium 4.4 mmol/L (3.5-5.1); Sodium 137 mmol/L (136-145); Total Bilirubin 0.2 mg/dL (0.15-1.2); Total Protein 7.7 g/dL (6.6-8.7)
== END 2023-03-10 11:33 | disposition home or self-care (01) ==
PROVIDERS: PCP Nurse Practitioner Family; Visit Provider Internal Medicine
DX: M06.9 Rheumatoid arthritis, unspecified (principal)
CPT/HCPCS: 36415; 80053; 85025; 85651; 86140

== ENCOUNTER → 2023-03-13 11:01 | Outpatient (BNVA) | payer MEDICARE, SELFPAY | PROVIDERS: PCP Nurse Practitioner Family; Visit Provider Internal Medicine | DX: M06.9 Rheumatoid arthritis, unspecified (principal); M35.00 Sjogren syndrome, unspecified; E11.9 Type 2 diabetes mellitus without complications; R00.0 Tachycardia, unspecified | CPT/HCPCS: 99213; 99214 ==

== ENCOUNTER → 2023-06-27 10:31 | Outpatient (BNVA) | payer MEDICARE, SELFPAY | PROVIDERS: PCP Nurse Practitioner Family; Visit Provider Internal Medicine | DX: M35.00 Sjogren syndrome, unspecified (principal); M06.9 Rheumatoid arthritis, unspecified; G62.9 Polyneuropathy, unspecified | CPT/HCPCS: 36415; 80053; 82550; 83520; 84100; 85025; 85651; 86003; 86008; 86140; 99214 ==

== ENCOUNTER 2023-09-22 14:14 | Outpatient (CLI) | payer MEDICARE, SELFPAY ==
[2023-09-22 14:30] LABS: Basophils % 0.3 %; Eosinophils # 0.1 10^3/uL (0.0-0.8); Eosinophils % 1.5 %; Lymphocytes # 1.7 10^3/uL (0.8-4.8); Lymphocytes % 27.8 %; Mean Corpuscular HGB Conc 30.8 g/dL (30-55); Mean Corpuscular Hemoglobin 27.2 pg (27-33); Mean Corpuscular Volume 88.4 fl (85-98); Mean Platelet Volume 9.2 fL (7.4-10.4); Monocytes # 0.3 10^3/uL (0.2-0.9); Monocytes % 5.1 %; Neutrophils # 3.87 10^3/uL (1.8-7.7); Neutrophils % 65.1 %; Nucleated Red Blood Cells % 0 %; Platelet Count 332 10^3/cmm (157-399); Red Blood Count 4.41 10^6/uL (3.85-5.65); White Blood Count 5.94 10^3/uL (3.29-11.43)
[2023-09-22 14:46] LABS: Alanine Aminotransferase 21 U/L (0-33); Alkaline Phosphatase 83 U/L (35-105); Aspartate Amino Transferase 21 U/L (0-32); C Reactive Protein 6.7 mg/L (0.0-4.9); Globulin 3.3 g/dL (1.3-4.6); Glomerular Filtration Rate 73.7 mL/min (90-130); Total Bilirubin 0.2 mg/dL (0.15-1.2); Total Protein 7.3 g/dL (6.6-8.7)
== END 2023-09-22 14:15 | disposition home or self-care (01) ==
LOC: LAB 14:15
PROVIDERS: PCP Nurse Practitioner Family; Visit Provider Internal Medicine Rheumatology
DX: M06.9 Rheumatoid arthritis, unspecified (principal); Z79.899 Other long term (current) drug therapy
CPT/HCPCS: 80076; 82565; 85025; 86140

== ENCOUNTER 2023-10-11 11:49 | Outpatient (CLI) | payer MEDICARE, SELFPAY ==
--- NOTE | 2023-10-11 12:00 | MM_ITS ---
WS: [id number] BILATERAL 3D TOMOSYNTHESIS DIGITAL SCREENING MAMMOGRAPHY WITH CAD CLINICAL INFORMATION: SCREENING HISTORY: Screening mammogram. No current complaints. COMPARISON: 2022 TECHNIQUE: Bilateral CC and MLO views. FINDINGS: Scattered fibroglandular densities bilaterally. No suspicious focal mass, asymmetry, calcifications, or architectural distortion. No evidence of malignancy. Incidental calcification upper LEFT breast. MM/[place] [id number] IMPRESSION: BI-RADS: 2-Benign FOLLOW UP: 1 Year Follow-up Recommend return to annual screening mammography.
== END 2023-10-11 11:50 | disposition home or self-care (01) ==
LOC: RAD 11:50
PROVIDERS: PCP Nurse Practitioner Family; Visit Provider Nurse Practitioner Family
DX: Z12.31 Encounter for screening mammogram for malignant neoplasm of breast (principal); R92.323 Mammographic fibroglandular density, bilateral breasts
CPT/HCPCS: 77063; 77067

== ENCOUNTER → 2023-11-20 11:39 | Outpatient (BNVA) | payer MEDICARE, SELFPAY | PROVIDERS: PCP Nurse Practitioner Family; Referring Provider Internal Medicine; Visit Provider Internal Medicine | DX: E11.9 Type 2 diabetes mellitus without complications (principal); E78.2 Mixed hyperlipidemia; Z79.85 Long-term (current) use of injectable non-insulin antidiabetic drugs | CPT/HCPCS: 99204 ==

== ENCOUNTER 2024-01-29 09:22 | Outpatient (CLI) | payer MEDICARE, SELFPAY ==
[2024-01-29 10:06] LABS: Basophils % 0.6 %; Eosinophils # 0.1 10^3/uL (0.0-0.8); Eosinophils % 2.6 %; Hematocrit 39.6 % (36-47); Lymphocytes # 1.7 10^3/uL (0.8-4.8); Lymphocytes % 32.1 %; Mean Corpuscular HGB Conc 31.6 g/dL (30-55); Mean Corpuscular Hemoglobin 27.5 pg (27-33); Mean Platelet Volume 9.7 fL (7.4-10.4); Monocytes # 0.4 10^3/uL (0.2-0.9); Monocytes % 6.8 %; Neutrophils # 3.06 10^3/uL (1.8-7.7); Neutrophils % 57.7 %; Nucleated Red Blood Cells % 0 %; Platelet Count 354 10^3/cmm (157-399); Red Blood Count 4.55 10^6/uL (3.85-5.65); Red Cell Distribution Width 17.7 % (12.1-15.1)
[2024-01-29 10:09] LABS: Erythrocyte Sedimentation Rate 73 mm/hr (0-15)
[2024-01-29 10:24] LABS: Alanine Aminotransferase 16 U/L (0-33); Albumin Level 4.1 g/dL (3.5-5.2); Alkaline Phosphatase 78 U/L (35-105); Aspartate Amino Transferase 18 U/L (0-32); C Reactive Protein 15.7 mg/L (0.0-4.9); Globulin 3.7 g/dL (1.3-4.6); Glomerular Filtration Rate 73.7 mL/min (90-130); Total Bilirubin 0.3 mg/dL (0.15-1.2); Total Protein 7.8 g/dL (6.6-8.7)
== END 2024-01-29 09:23 | disposition home or self-care (01) ==
LOC: LAB 09:29
PROVIDERS: PCP Nurse Practitioner Family; Visit Provider Internal Medicine Rheumatology
DX: Z79.899 Other long term (current) drug therapy (principal); M06.9 Rheumatoid arthritis, unspecified
CPT/HCPCS: 36415; 80076; 82565; 85025; 85651; 86140

== ENCOUNTER → 2024-01-31 10:39 | Outpatient (BNVA) | payer MEDICARE, SELFPAY | PROVIDERS: PCP Nurse Practitioner Family; Visit Provider Internal Medicine Rheumatology | DX: M05.79 Rheumatoid arthritis with rheumatoid factor of multiple sites without organ or systems involvement (principal); M35.00 Sjogren syndrome, unspecified; Z79.899 Other long term (current) drug therapy; Z71.85 Encounter for immunization safety counseling; Z11.1 Encounter for screening for respiratory tuberculosis; Z11.59 Encounter for screening for other viral diseases | CPT/HCPCS: 99214 ==

== ENCOUNTER → 2024-03-11 11:15 | Outpatient (BNVA) | payer MEDICARE, SELFPAY | PROVIDERS: PCP Nurse Practitioner Family; Visit Provider Nurse Practitioner Family | DX: R00.0 Tachycardia, unspecified (principal) | CPT/HCPCS: 99213 ==

== ENCOUNTER 2024-03-22 09:13 | Outpatient (CLI) | payer MEDICARE, SELFPAY ==
[2024-03-22 10:16] LABS: Hepatitis B Core AB, Total Non-Reactive (Nonreactive); Hepatitis B Surface Antigen Non-Reactive (Nonreactive); Hepatitis C Virus Antibody Non-Reactive (Nonreactive)
== END 2024-03-22 09:14 | disposition home or self-care (01) ==
LOC: LAB 09:16
PROVIDERS: PCP Nurse Practitioner Family; Visit Provider Internal Medicine Rheumatology
DX: Z11.59 Encounter for screening for other viral diseases (principal); Z11.1 Encounter for screening for respiratory tuberculosis
CPT/HCPCS: 36415; 86480; 86704; 86803; 87340

== ENCOUNTER 2024-05-16 08:56 | Outpatient (CLI) | payer MEDICARE, SELFPAY ==
[2024-05-16 10:04] LABS: Alanine Aminotransferase 17 U/L (0-33); Albumin Level 3.9 g/dL (3.5-5.2); Alkaline Phosphatase 75 U/L (35-105); Anion Gap 13.2 (5-19); Aspartate Amino Transferase 19 U/L (0-32); Blood Urea Nitrogen 4 mg/dL (6-20); Calcium 9.4 mg/dL (8.5-10.5); Carbon Dioxide 30 mmol/L (22-29); Chloride 100 mmol/L (98-107); Globulin 3.7 g/dL (1.3-4.6); Glomerular Filtration Rate 85.9 mL/min (90-130); Glucose 151 mg/dL (65-115); Osmolality Calculated 288 mOsm/kg (285-295); Potassium 4.2 mmol/L (3.5-5.1); Sodium 139 mmol/L (136-145); Total Bilirubin 0.3 mg/dL (0.15-1.2); Total Protein 7.6 g/dL (6.6-8.7)
[2024-05-16 14:55] LABS: Estmated Average Glucose 108; Hemoglobin A1C 5.4 % (4.0-6.0)
== END 2024-05-16 08:57 | disposition home or self-care (01) ==
PROVIDERS: PCP Nurse Practitioner Family; Visit Provider Internal Medicine
DX: E11.9 Type 2 diabetes mellitus without complications (principal)
CPT/HCPCS: 36415; 80053; 83036

== ENCOUNTER → 2024-05-22 10:46 | Outpatient (BNVA) | payer MEDICARE, SELFPAY | PROVIDERS: PCP Nurse Practitioner Family; Visit Provider Internal Medicine | DX: E11.9 Type 2 diabetes mellitus without complications (principal); E78.2 Mixed hyperlipidemia; Z79.85 Long-term (current) use of injectable non-insulin antidiabetic drugs | CPT/HCPCS: 99214 ==

== ENCOUNTER 2024-05-27 10:22 | Outpatient (CLI) | payer MEDICARE, SELFPAY ==
[2024-05-27 11:13] LABS: Basophils % 0.5 %; Eosinophils # 0.1 10^3/uL (0.0-0.8); Eosinophils % 3.2 %; Hematocrit 40.2 % (36-47); Lymphocytes # 1.5 10^3/uL (0.8-4.8); Lymphocytes % 35.1 %; Mean Corpuscular HGB Conc 31.6 g/dL (30-55); Mean Corpuscular Hemoglobin 28.7 pg (27-33); Mean Platelet Volume 9.2 fL (7.4-10.4); Monocytes # 0.3 10^3/uL (0.2-0.9); Monocytes % 6.9 %; Neutrophils # 2.36 10^3/uL (1.8-7.7); Neutrophils % 54.1 %; Nucleated Red Blood Cells % 0 %; Platelet Count 304 10^3/cmm (157-399); Red Blood Count 4.42 10^6/uL (3.85-5.65); Red Cell Distribution Width 16.9 % (12.1-15.1); White Blood Count 4.36 10^3/uL (3.29-11.43)
[2024-05-27 11:25] LABS: Erythrocyte Sedimentation Rate 52 mm/hr (0-15)
[2024-05-27 11:33] LABS: Alanine Aminotransferase 15 U/L (0-33); Albumin Level 3.9 g/dL (3.5-5.2); Alkaline Phosphatase 69 U/L (35-105); Aspartate Amino Transferase 19 U/L (0-32); C Reactive Protein 5.7 mg/L (0.0-4.9); Chol HDL Ratio 3.09 mg/dL (0.0-4.40); Cholesterol 198 mg/dL (0-200); Globulin 3.7 g/dL (1.3-4.6); Glomerular Filtration Rate 102.7 mL/min (90-130); HDL Cholesterol 64 mg/dL (60-100); LDL Cholesterol Calculated 106 mg/dL (50-129); LDL HDL Ratio 1.66 RATIO (0.00-3.22); Total Bilirubin 0.4 mg/dL (0.15-1.2); Total Protein 7.6 g/dL (6.6-8.7); Triglycerides 138 mg/dL (0-150)
[2024-05-27 11:38] LABS: Creatinine Urine, Random 51 mg/dL (28-217); Microalbum Creatinine Ratio Ur 20 mg/dL (0-20); Microalbumin Random Urine 1 ug/dL (0-20)
== END 2024-05-27 10:23 | disposition home or self-care (01) ==
LOC: LAB 10:24
PROVIDERS: Internal Medicine; PCP Nurse Practitioner Family; Visit Provider Internal Medicine Rheumatology
DX: Z79.899 Other long term (current) drug therapy (principal); M06.9 Rheumatoid arthritis, unspecified; E11.9 Type 2 diabetes mellitus without complications
CPT/HCPCS: 36415; 80061; 80076; 82044; 82565; 85025; 85651; 86140

== ENCOUNTER → 2024-05-29 10:32 | Outpatient (BNVA) | payer MEDICARE, SELFPAY | PROVIDERS: PCP Nurse Practitioner Family; Visit Provider Internal Medicine Rheumatology | DX: Z79.899 Other long term (current) drug therapy (principal); M05.79 Rheumatoid arthritis with rheumatoid factor of multiple sites without organ or systems involvement; M35.00 Sjogren syndrome, unspecified; Z71.85 Encounter for immunization safety counseling | CPT/HCPCS: 99214 ==

== ENCOUNTER 2024-09-20 11:40 | Outpatient (CLI) | payer MEDICARE, SELFPAY ==
[2024-09-20 12:12] LABS: Basophils % 0.3 %; Eosinophils # 0.1 10^3/uL (0.0-0.8); Eosinophils % 2.6 %; Hematocrit 40.1 % (36-47); Lymphocytes # 1.7 10^3/uL (0.8-4.8); Lymphocytes % 49.7 %; Mean Corpuscular HGB Conc 31.7 g/dL (30-55); Mean Corpuscular Volume 88.3 fl (85-98); Mean Platelet Volume 9.6 fL (7.4-10.4); Monocytes # 0.4 10^3/uL (0.2-0.9); Monocytes % 10.6 %; Neutrophils # 1.25 10^3/uL (1.8-7.7); Neutrophils % 36.8 %; Nucleated Red Blood Cells % 0 %; Platelet Count 262 10^3/cmm (157-399); Red Blood Count 4.54 10^6/uL (3.85-5.65); Red Cell Distribution Width 16.4 % (12.1-15.1)
[2024-09-20 12:19] LABS: Erythrocyte Sedimentation Rate 9 mm/hr (0-15)
[2024-09-20 12:30] LABS: Alanine Aminotransferase 12 U/L (0-33); Alkaline Phosphatase 58 U/L (35-105); Aspartate Amino Transferase 17 U/L (0-32); Globulin 3.4 g/dL (1.3-4.6); Glomerular Filtration Rate 85.6 mL/min (90-130); Total Bilirubin 0.3 mg/dL (0.15-1.2); Total Protein 7.4 g/dL (6.6-8.7)
== END 2024-09-20 11:41 | disposition home or self-care (01) ==
LOC: LAB 11:42
PROVIDERS: PCP Nurse Practitioner Family; Visit Provider Internal Medicine Rheumatology
DX: Z79.899 Other long term (current) drug therapy (principal); M05.79 Rheumatoid arthritis with rheumatoid factor of multiple sites without organ or systems involvement
CPT/HCPCS: 36415; 80076; 82565; 85025; 85651; 86140

== ENCOUNTER → 2024-09-25 10:27 | Outpatient (BNVA) | payer MEDICARE, SELFPAY | PROVIDERS: PCP Nurse Practitioner Family; Visit Provider Internal Medicine Rheumatology | DX: M05.79 Rheumatoid arthritis with rheumatoid factor of multiple sites without organ or systems involvement (principal); Z79.899 Other long term (current) drug therapy; Z71.85 Encounter for immunization safety counseling; M35.00 Sjogren syndrome, unspecified | CPT/HCPCS: 99214 ==

== ENCOUNTER 2024-10-11 08:47 | Outpatient (CLI) | payer MEDICARE, SELFPAY ==
--- NOTE | 2024-10-11 | MM_ITS ---
WS: [id number] BILATERAL 3D TOMOSYNTHESIS DIGITAL SCREENING MAMMOGRAPHY WITH CAD CLINICAL INFORMATION: ANNUAL SCREEN HISTORY: Screening mammogram. No current complaints. COMPARISON: 2023 TECHNIQUE: Bilateral CC and MLO views. FINDINGS: Scattered fibroglandular densities bilaterally. No suspicious focal mass, asymmetry, calcifications, or architectural distortion. No evidence of malignancy. Incidental calcifications LEFT breast. MM/MM scr tomosynthesis [id number] IMPRESSION: DENSITY: There are scattered areas of fibroglandular density. BI-RADS: 2 - Benign. FOLLOW UP: 1 Year Follow-up Recommend return to annual screening mammography.
== END 2024-10-11 08:48 | disposition home or self-care (01) ==
LOC: RAD 08:48
PROVIDERS: PCP Nurse Practitioner Family; Visit Provider Nurse Practitioner Family
DX: Z12.31 Encounter for screening mammogram for malignant neoplasm of breast (principal); R92.323 Mammographic fibroglandular density, bilateral breasts; R92.1 Mammographic calcification found on diagnostic imaging of breast
CPT/HCPCS: 77063; 77067

== ENCOUNTER → 2024-11-20 12:33 | Outpatient (BNVA) | payer MEDICARE, SELFPAY | PROVIDERS: PCP Nurse Practitioner Family; Visit Provider Internal Medicine | DX: E11.9 Type 2 diabetes mellitus without complications (principal); E78.2 Mixed hyperlipidemia | CPT/HCPCS: 36415; 80053; 80061; 83036; 99214 ==

== ENCOUNTER 2024-12-18 09:52 | Outpatient (CLI) | payer MEDICARE, SELFPAY ==
[2024-12-18 11:13] LABS: Creatinine Urine, Random 35 mg/dL (28-217); Microalbum Creatinine Ratio Ur 29 mg/dL (0-20)
== END 2024-12-18 09:53 | disposition home or self-care (01) ==
PROVIDERS: PCP Nurse Practitioner Family; Visit Provider Internal Medicine
DX: E78.2 Mixed hyperlipidemia (principal); E11.9 Type 2 diabetes mellitus without complications
CPT/HCPCS: 82044

== ENCOUNTER 2025-01-16 09:48 | Outpatient (CLI) | payer MEDICARE, SELFPAY ==
--- NOTE | 2025-01-16 10:08 | XR_ITS ---
WS: [id number] XR lumbar spine 6V w f/e [id number] REASON FOR EXAM: SPONDYLOSIS OF LUMBOSACRAL REGION W/O MYELOPATHY/RADICULOPAT FINDINGS: There are 6 lumbar vertebrae without ribs. Mild rotatory levoscoliosis. No significant vertebral body compression deformity or focal lesion. Mild narrowing of the disc spaces L4-S1 with mild endplate sclerosis and osteophytosis. No spondylolysis. No significant neutral spondylolisthesis. No significant vertebral body movement with flexion or extension. Dorsal column stimulator. Pneumatic gastric collar and tubing. XR/XR lumbar spine 6V w f/e [id number] IMPRESSION: 6 lumbar vertebrae. Degenerative spondylosis as above.
--- NOTE | 2025-01-16 10:08 | XR_ITS ---
WS: [id number] XR cervical spine min 6V [id number] REASON FOR EXAM: CERVICAL SPONDYLOSIS FINDINGS: Mild straightening of the normal lordosis of the cervical spine. No vertebral body compression deformity or focal lesion. Mild narrowing of the C4-C5 disc space with mild anterior and posterior osteophytosis. Moderate narrowing of the C5-C6 disc space with moderate anterior and posterior osteophytosis. Mild narrowing of the C6-C7 disc space with mild anterior and posterior osteophytosis. Minimal anterolisthesis of C4 on C5 which does not change significantly with flexion or extension. Moderate uncinate osteophytosis impingement on the right neural foramina C5-T1. Moderate uncinate osteophyte ptosis impingement on the left neuroforamina at C5-T1. XR/XR cervical spine min 6V [id number] IMPRESSION: Degenerative spondylosis as above.
[2025-01-16 10:32] LABS: Hematocrit 43.3 % (36-47); Hemoglobin 13.80 g/dL (11.27-16.99); Mean Corpuscular HGB Conc 31.9 g/dL (30-55); Mean Corpuscular Hemoglobin 28.5 pg (27-33); Mean Corpuscular Volume 89.3 fl (85-98); Nucleated Red Blood Cells % 0 %; Platelet Count 322 10^3/cmm (157-399); Red Blood Count 4.85 10^6/uL (3.85-5.65); White Blood Count 5.36 10^3/uL (3.29-11.43)
[2025-01-16 10:56] LABS: Alanine Aminotransferase 35 U/L (0-33); Albumin Level 4.2 g/dL (3.5-5.2); Alkaline Phosphatase 91 U/L (35-105); Aspartate Amino Transferase 22 U/L (0-32); Globulin 3.5 g/dL (1.3-4.6); Total Protein 7.7 g/dL (6.6-8.7)
== END 2025-01-16 09:49 | disposition home or self-care (01) ==
PROVIDERS: PCP Nurse Practitioner Family; Visit Provider Internal Medicine Rheumatology
DX: Z79.899 Other long term (current) drug therapy (principal)
CPT/HCPCS: 36415; 72052; 72114; 80076; 82565; 85025; 85651; 86140

== ENCOUNTER → 2025-01-23 09:28 | Outpatient (BNVA) | payer MEDICARE, SELFPAY | PROVIDERS: PCP Nurse Practitioner Family; Visit Provider Internal Medicine Rheumatology | DX: M05.79 Rheumatoid arthritis with rheumatoid factor of multiple sites without organ or systems involvement (principal); M35.00 Sjogren syndrome, unspecified; Z71.85 Encounter for immunization safety counseling; Z79.899 Other long term (current) drug therapy | CPT/HCPCS: 99214 ==

== ENCOUNTER → 2025-04-24 07:57 | Outpatient (BNVA) | payer MEDICARE, SELFPAY | PROVIDERS: PCP Nurse Practitioner Family; Visit Provider Nurse Practitioner Family | DX: L81.4 Other melanin hyperpigmentation (principal); D22.5 Melanocytic nevi of trunk; Z80.8 Family history of malignant neoplasm of other organs or systems; D48.5 Neoplasm of uncertain behavior of skin | CPT/HCPCS: 11102; 99203 ==

== ENCOUNTER 2025-06-06 11:09 | Outpatient (CLI) | payer MEDICARE, SELFPAY ==
[2025-06-06 11:40] LABS: Hematocrit 41.5 % (36-47); Hemoglobin 13.40 g/dL (11.27-16.99); Mean Corpuscular HGB Conc 32.3 g/dL (30-55); Mean Corpuscular Hemoglobin 29.7 pg (27-33); Mean Corpuscular Volume 92.0 fl (85-98); Nucleated Red Blood Cells % 0 %; Platelet Count 244 10^3/cmm (157-399); Red Blood Count 4.51 10^6/uL (3.85-5.65); White Blood Count 4.31 10^3/uL (3.29-11.43)
[2025-06-06 11:52] LABS: Estmated Average Glucose 108; Hemoglobin A1C 5.4 % (4.0-6.0)
[2025-06-06 12:02] LABS: Creatinine Urine, Random 92 mg/dL (28-217); Microalbum Creatinine Ratio Ur 11 mg/dL (0-20)
[2025-06-06 12:04] LABS: Alanine Aminotransferase 18 U/L (0-33); Albumin Level 3.9 g/dL (3.5-5.2); Alkaline Phosphatase 71 U/L (35-105); Anion Gap 14.7 (5-19); Aspartate Amino Transferase 24 U/L (0-32); Blood Urea Nitrogen 7 mg/dL (8-23); Calcium 9.2 mg/dL (8.5-10.5); Carbon Dioxide 28 mmol/L (22-29); Chloride 100 mmol/L (98-107); Globulin 3.4 g/dL (1.3-4.6); Glucose 106 mg/dL (65-115); Osmolality Calculated 286 mOsm/kg (285-295); Potassium 3.7 mmol/L (3.5-5.1); Sodium 139 mmol/L (136-145); Total Protein 7.3 g/dL (6.6-8.7)
[2025-06-06 12:06] LABS: Alanine Aminotransferase 17 U/L (0-33); Albumin Level 3.9 g/dL (3.5-5.2); Alkaline Phosphatase 69 U/L (35-105); Aspartate Amino Transferase 24 U/L (0-32); Cholesterol 214 mg/dL (0-200); Globulin 3.4 g/dL (1.3-4.6); HDL Cholesterol 68 mg/dL (60-100); Total Protein 7.3 g/dL (6.6-8.7); Triglycerides 145 mg/dL (0-150)
== END 2025-06-06 11:10 | disposition home or self-care (01) ==
PROVIDERS: Internal Medicine; PCP Nurse Practitioner Family; Visit Provider Internal Medicine Rheumatology
DX: E11.9 Type 2 diabetes mellitus without complications (principal); E78.2 Mixed hyperlipidemia; Z79.899 Other long term (current) drug therapy
CPT/HCPCS: 36415; 80053; 80061; 80076; 82044; 82306; 82565; 83036; 85025; 85651; 86140

== ENCOUNTER → 2025-06-09 09:17 | Outpatient (BNVA) | payer MEDICARE, SELFPAY | PROVIDERS: PCP Nurse Practitioner Family; Visit Provider Internal Medicine Rheumatology | DX: M35.00 Sjogren syndrome, unspecified (principal); Z79.899 Other long term (current) drug therapy; Z71.85 Encounter for immunization safety counseling; M05.79 Rheumatoid arthritis with rheumatoid factor of multiple sites without organ or systems involvement; Z79.1 Long term (current) use of non-steroidal anti-inflammatories (NSAID) | CPT/HCPCS: 99214 ==